=== PATIENT | male | born 1945 | race Caucasian/White ===

== ENCOUNTER → 2017-07-01 | Outpatient (CLI) | payer MEDICARE, OTHER ==
[2017-07-01 12:41] LABS: BILIRUBIN NEGATIVE (NEGATIVE); BLOOD TRACE-INTACT (NEGATIVE); CLARITY CLEAR (CLEAR); COLOR YELLOW (YELLOW); GLUCOSE TRACE (NEGATIVE); KETONE NEGATIVE (NEGATIVE); LEUKO ESTERASE TRACE (NEGATIVE); NITRITE NEGATIVE (NEGATIVE); SPECIFIC GRAVITY >= 1.030 (1.005-1.030); UROBILINOGEN 0.2 E.U./dl (0.2-1.0)
[2017-07-01 12:59] LABS: BACTERIA 1+; MUCOUS 1+
== END | disposition home or self-care (01) ==
LOC: LAB 12:05
PROVIDERS: Orthopaedic Surgery
DX: N39.0 Urinary tract infection, site not specified (principal)

== ENCOUNTER → 2018-08-31 | Outpatient (CLI) | payer OTHER, MEDICARE | END | disposition home or self-care (01) | LOC: RAD 11:58 | DX: M51.36 Other intervertebral disc degeneration, lumbar region (principal); M85.88 Other specified disorders of bone density and structure, other site ==

== ENCOUNTER 2023-06-28 16:28 | Inpatient (IN) | payer OTHER, MEDICARE ==
[2023-06-28 16:38] VITALS: BP 155/79
[2023-06-28 16:53] LABS: HEMATOCRIT 51.3 % (42.0-52.0); MEAN CELL VOLUME 90.3 fl (80.0-94.0); MEAN CORPUSCULAR HGB 30.3 pg (27.0-31.0); MEAN CORPUSCULAR HGB CONC 33.5 g/dl (33.0-37.0); MEAN PLATELET VOLUME 9.2 fl (9.6-12.3); PLATELET COUNT AUTOMATED 270 10*3/uL (130-400); RED BLOOD COUNT 5.68 10*6/uL (4.50-5.90); RED CELL DISTRI WIDTH 12.6 % (0-14.5); WHITE BLOOD COUNT 22.4 10*3/uL (4.8-10.8)
[2023-06-28 17:10] LABS: MANUAL DIFF REFLEX YES
[2023-06-28 17:18] LABS: ALKALINE PHOSPHATASE 80 U/L (46-116); BUN 10 mg/dl (9-23); CHLORIDE 105 mmol/L (98-107); POTASSIUM 3.9 mmol/L (3.4-5.1); SGPT/ALT 16 U/L (5-49); TOTAL PROTEIN 7.3 gm/dL (6.0-8.0)
[2023-06-28 17:33] LABS: TOTAL CELLS COUNTED 100 #CELLS
[2023-06-28 17:35] LABS: BURR CELLS FEW; PLATELET SUFFICIENCY NORMAL (NORMAL)
[2023-06-28 21:43] LABS: BILIRUBIN Negative (Negative); BLOOD Trace-Lysed (Negative); CLARITY Clear (Clear); COLOR Yellow (Yellow); GLUCOSE Negative (Negative); KETONE Negative (Negative); LEUKO ESTERASE Negative (Negative); NITRITE Negative (Negative); SPECIFIC GRAVITY >= 1.030 (1.001-1.030)
[2023-06-28 21:54] LABS: EPITHELIAL CELLS 0-2
[2023-06-28 23:01] VITALS: BP 158/62
[2023-06-29 04:07] VITALS: BP 119/67
[2023-06-29 06:17] LABS: BASO % 0.2 % (0.0-1.0); EOS % 0.2 % (1.0-4.0); HEMATOCRIT 46.3 % (42.0-52.0); LYMPH # 1.5 10*3/uL (1.3-4.4); LYMPH % 8.4 % (27.0-41.0); MEAN CELL VOLUME 91.3 fl (80.0-94.0); MEAN CORPUSCULAR HGB 30.4 pg (27.0-31.0); MEAN CORPUSCULAR HGB CONC 33.3 g/dl (33.0-37.0); MEAN PLATELET VOLUME 9.3 fl (9.6-12.3); MONO # 1.2 10*3/uL (0.1-1.0); MONO % 6.6 % (3.0-9.0); NEUT # 15.5 10*3/uL (2.3-7.9); NEUT % 84.2 % (47.0-73.0); PLATELET COUNT AUTOMATED 215 10*3/uL (130-400); RED BLOOD COUNT 5.07 10*6/uL (4.50-5.90); WHITE BLOOD COUNT 18.4 10*3/uL (4.8-10.8)
[2023-06-29 06:43] LABS: BUN 9 mg/dl (9-23); CHLORIDE 111 mmol/L (98-107); POTASSIUM 3.8 mmol/L (3.4-5.1)
== END 2023-06-29 09:33 | disposition left against medical advice (07) | DRG 390 ==
LOC: ED 16:28 → EDHOLD 22:35
PROVIDERS: Emergency Medicine; Student in an Organized Health Care Education/Training Program; ADMIT Internal Medicine; ATTEND Internal Medicine
DX: K56.0 Paralytic ileus (principal); Z80.0 Family history of malignant neoplasm of digestive organs; F17.210 Nicotine dependence, cigarettes, uncomplicated; Z81.8 Family history of other mental and behavioral disorders; D72.9 Disorder of white blood cells, unspecified; R00.0 Tachycardia, unspecified; D72.829 Elevated white blood cell count, unspecified; D72.810 Lymphocytopenia; R73.9 Hyperglycemia, unspecified; E80.6 Other disorders of bilirubin metabolism

== ENCOUNTER 2024-02-11 08:38 | Emergency (ER) | payer MEDICARE, BC ==
[~2024-02-11] VITALS: Ht 182.8 cm; Wt 97.1 kg
[2024-02-11] MEDS ORDERED: METHOCARBAMOL 500 MG TAB PO ONE (09:15)
[2024-02-11] MEDS ORDERED: predniSONE 20 MG TAB PO ONE (09:15)
[2024-02-11] MEDS ORDERED: MELOXICAM15 MG PO (09:31)
[2024-02-11] MEDS ORDERED: METHYLPRED-DP4 MG PO (09:31)
[2024-02-11] MEDS ORDERED: TRAMADOL HCL50 MG PO (09:31)
[2024-02-11] MEDS ORDERED: METHOCARBAMOL750 M1 PO (10:28)
[2024-02-11] MEDS ORDERED: PREDNISONE50 MG PO (10:28)
== END 2024-02-11 10:38 | disposition home or self-care (01) ==
LOC: ED 08:38
DX: M54.32 Sciatica, left side (principal); M79.605 Pain in left leg; Z98.890 Other specified postprocedural states; F17.210 Nicotine dependence, cigarettes, uncomplicated